=== PATIENT | male | born 1970 | race Caucasian/White ===

== ENCOUNTER 2016-09-19 23:49 | Emergency (ER) | payer OTHER ==
--- NOTE | 2016-09-20 01:58 | EDDOCDS ---
Nurse's Notes [facility] Name: Lino Stearns Age: 46 yrs Sex: Male : 1970 Arrival Date: 09/19/2016 Time: 23:49 Bed TR1 Private MD: NO PRIMARY PHYSICIAN, . Diagnosis: Epistaxis Presentation: 09/19 23:53 Presenting complaint: Patient states: Went to Urgent Care a couple of days mcp ago--prescribed antibiotic, inhaler and cough medicine for URI. About 9pm had 10-15 minute nose bleed--stopped now. Adult Sepsis Screening: The patient does not have new or worsening altered mentation. Patient's respiratory rate is less than 22. Systolic blood pressure is greater than 100. Patient has a qSOFA score of 0- Negative Sepsis Screen. Suicide/Homicide risk assessment- the patient denies having any suicidal and/or homicidal ideations and does not present with any other emotional, behavioral or mental health complaints. Status: Patient is not a manager service desk or dependent. Transition of care: patient was not received from another setting of care. 23:53 Acuity: KATIE Level 4 [facility] 23:53 Method Of Arrival: Walkin/Carried/Asstd [facility] Triage Assessment: 23:56 General: Appears in no apparent distress, Behavior is cooperative. Pain: Denies pain. [facility] HIV screening NA for this visit Offered previously. Neurological: No deficits noted. EENT: Reports nasal congestion nasal discharge. Respiratory: Airway is patent Respiratory effort is even, unlabored. Derm: Skin is pink, warm & dry. Historical: - Allergies: Aspirin (Upset stomach); SULFA (SULFONAMIDES); - Home Meds: 1. levofloxacin 750 mg Oral tab 1 tab once daily 2. benzonatate 100 mg oral cap 1 cap 3 times per day 3. Ventolin Rotahaler/Rotacaps Inhl four times a day - PMHx: none; - PSHx: Hernia repair; - Social history: Smoking status: Patient states was never smoker of tobacco. No barriers to communication noted, The patient speaks fluent Lao. - Family history: Not pertinent. - : The pt / caregiver states he / she is not on anticoagulants. Home medication list is obtained from the patient. - Exposure Risk Screening:: None identified. Screenin/08 01:56 Screening information is obtained from the patient. Fall risk: No risks identified. cp1 Assistance ADL's: requires no assistance with activities of daily living. Assistance ADL's: requires no assistance with activities of daily living. Assistance ADL's: requires no assistance with activities of daily living. Abuse/DV Screen: The patient / caregiver reports he/she is: not in a situation that causes fear, pain or injury. Nutritional screening: No deficits noted. Advance Directives: Unable to assess Advance Directive status due to pt condition. home support is adequate. Assessment: 01:43 General: Patient states that his BP was fine yesterday at urgent care and can't cp1 understand why we keep rechecking him here. Patient was informed his BP has been elevated since arrival and that's why we have rechecked it. Patient states " This is ridiculous and his blood pressure is fine and doesn't need any medications for it and won't start them either because I'm just anxious when in the hospital". PA was made aware.. 01:51 General: Patient was given his discharge paperwork and when offered a list of primary cp1 care doctors he declined stating "I don't need one because I just go to urgent care and plus I don't have high blood pressure. I have a 5 hour energy drink in me and that's why it's elevated".. Vital Signs: 09/19 23:51 BP 174 / 103; Pulse 108; Resp 18 S; Temp 97.7(O); Pulse Ox 96% on R/A; Weight 167.83 kg gr2 (R); Height 5 ft. 11 in. (180.34 cm) (R); Pain 0/10; 09/20 01:37 BP 172 / 99; Pulse 100; Resp 20; Temp 97.9; Pulse Ox 94% on R/A; cp1 09/19 23:51 Body Mass Index 51.60 (167.83 kg, 180.34 cm) gr2 Vitals: 09/19 23:51 Log In Time: September 19, 2016 at 23:51. gr2 ED Course: 23:50 Patient visited by Sunny Pederson. gr2 23:50 NO PRIMARY PHYSICIAN, . is Private Physician. gr2 23:50 Patient moved to Waiting gr2 23:51 Patient visited by Sunny Pederson. gr2 23:52 Patient moved to Pre RCE gr2 23:54 Triage Initiated [facility] 23:56 Patient visited by Cierra Pacheco RN. [facility] 23:59 Patient moved to MTA Wait cz 09/20 01:16 Patient moved to I4 / M4 cz 01:27 Tejas Jones [facility]-C [facility] cc10 01:27 Topher Gonzalez DO is Attending Physician. cc10 01:28 Patient visited by Tejas Jones PA-C. cc10 01:28 Patient visited by Tejas Jones PA-C. cc10 01:51 Patient moved to TR1 cln 01:56 The patient / caregiver is instructed regarding the plan of care and ED course. cp1 01:56 No IV's were initiated during this patient's visit. No procedures done that require cp1 assistance. Administered Medications: 01:51 Not Given (Patient Refused): Mupirocin Cream 2 % 1 applic Topical once; nasal with a cp1 q-tip Order Results: There are currently no results for this order. Outcome: 01:43 Discharge ordered by Provider. cc10 01:56 Discharge Assessment: Patient awake, alert and oriented x 3. No cognitive and/or cp1 functional deficits noted. Patient verbalized understanding of disposition instructions. patient administered narcotics - no. The following High Risk Discharge criteria are identified: None. Discharged to home ambulatory. Condition: good Condition: stable. Discharge instructions given to patient, Instructed on discharge instructions, follow up and referral plans. medication usage, Demonstrated understanding of instructions, medications, Pt was receptive of discharge instructions/ teaching. Prescriptions given X 1. No special radiology studies were completed. Property sent home with patient. :Personal belongings accompany Pt. 01:57 Patient left the ED. cp1 Signatures: Cierra Pacheco RN RN mcp Zecher, Calvin, RN RN cz Perkins, Cheryl,POLICYHOLDER INFORMATION CLERK POLICYHOLDER INFORMATION CLERK cp1 Sunny Pederson gr2 Tejas Jones PA-C PA-C cc10 Lesley Kate PCA FIELD CASHIER cln MTDD
--- NOTE | 2016-09-20 01:58 | EDDOCDS ---
Physician Documentation [facility] Name: Lino Stearns Age: 46 yrs Sex: Male : 1970 Arrival Date: 09/19/2016 Time: 23:49 Bed TR1 Private MD: NO PRIMARY PHYSICIAN, . Disposition: 09/20/16 01:43 Discharged to Home/Self Care. Impression: Epistaxis. - Condition is Stable. - Discharge Instructions: Nosebleed. - Prescriptions for Bactroban 2 % Topical Ointment - apply 1 application by INTRANASAL route every 12 hours for 5 days; 15 gram. - Medication Reconciliation, Local Pharmacy Hours form. - Follow up: Emergency Department; When: As needed. Follow up: Private Physician; When: Call to arrange an appointment; Reason: Wound/Symptom Recheck, Recheck today's complaints, Worsening of conditions, Continuance of care. - Problem is new. - Symptoms are resolved. Historical: - Allergies: Aspirin (Upset stomach); SULFA (SULFONAMIDES); - Home Meds: 1. levofloxacin 750 mg Oral tab 1 tab once daily 2. benzonatate 100 mg oral cap 1 cap 3 times per day 3. Ventolin Rotahaler/Rotacaps Inhl four times a day - PMHx: none; - PSHx: Hernia repair; - Social history: Smoking status: Patient states was never smoker of tobacco. No barriers to communication noted, The patient speaks fluent [place] Island[place]. - Family history: Not pertinent. - : The pt / caregiver states he / she is not on anticoagulants. Home medication list is obtained from the patient. - Exposure Risk Screening:: None identified. Vital Signs: 09/19 23:51 BP 174 / 103; Pulse 108; Resp 18 S; Temp 97.7(O); Pulse Ox 96% on R/A; Weight 167.83 kg gr2 / 370 lbs (R); Height 5 ft. 11 in. (180.34 cm) (R); Pain 0/10; 09/20 01:37 BP 172 / 99; Pulse 100; Resp 20; Temp 97.9; Pulse Ox 94% on R/A; cp1 09/19 23:51 Body Mass Index 51.60 (167.83 kg, 180.34 cm) gr2 MDM: 01:37 Mupirocin Cream 2 % 1 applic Topical once; nasal with a q-tip ordered. cc10 01:37 Vital Signs ordered. cc10 Administered Medications: 01:51 Not Given (Patient Refused): Mupirocin Cream 2 % 1 applic Topical once; nasal with a cp1 q-tip Signatures: Cierra Pacheco RN RN Liz Sullivan,LINE BUILDER LINE BUILDER cp1 Tejas Jones, REJIC PAMarcianoC cc10 MTDD
--- NOTE | 2016-09-22 12:19 | EDDOCDS ---
Physician Documentation [facility] Name: Lino Stearns Age: 46 yrs Sex: Male : 1970 Arrival Date: 09/19/2016 Time: 23:49 Bed TR1 Private MD: NO PRIMARY PHYSICIAN, . Disposition: 09/20/16 01:43 Discharged to Home/Self Care. Impression: Epistaxis. - Condition is Stable. - Discharge Instructions: Nosebleed. - Prescriptions for Bactroban 2 % Topical Ointment - apply 1 application by INTRANASAL route every 12 hours for 5 days; 15 gram. - Medication Reconciliation, Local Pharmacy Hours form. - Follow up: Emergency Department; When: As needed. Follow up: Private Physician; When: Call to arrange an appointment; Reason: Wound/Symptom Recheck, Recheck today's complaints, Worsening of conditions, Continuance of care. - Problem is new. - Symptoms are resolved. Historical: - Allergies: Aspirin (Upset stomach); SULFA (SULFONAMIDES); - Home Meds: 1. levofloxacin 750 mg Oral tab 1 tab once daily 2. benzonatate 100 mg oral cap 1 cap 3 times per day 3. Ventolin Rotahaler/Rotacaps Inhl four times a day - PMHx: none; - PSHx: Hernia repair; - Social history: Smoking status: Patient states was never smoker of tobacco. No barriers to communication noted, The patient speaks fluent Zimbabwean. - Family history: Not pertinent. - : The pt / caregiver states he / she is not on anticoagulants. Home medication list is obtained from the patient. - Exposure Risk Screening:: None identified. Vital Signs: 09/19 23:51 BP 174 / 103; Pulse 108; Resp 18 S; Temp 97.7(O); Pulse Ox 96% on R/A; Weight 167.83 kg gr2 / 370 lbs (R); Height 5 ft. 11 in. (180.34 cm) (R); Pain 0/10; 09/20 01:37 BP 172 / 99; Pulse 100; Resp 20; Temp 97.9; Pulse Ox 94% on R/A; cp1 09/19 23:51 Body Mass Index 51.60 (167.83 kg, 180.34 cm) gr2 MDM: 01:37 Mupirocin Cream 2 % 1 applic Topical once; nasal with a q-tip ordered. cc10 01:37 Vital Signs ordered. cc10 02:00 Financial registration complete. hs2 02:01 [facility] Payment Agreement was scanned into [employer] and attached to record. hs2 08:08 T-Sheet-- Draft Copy was scanned into [employer] and attached to record. seh Administered Medications: 01:51 Not Given (Patient Refused): Mupirocin Cream 2 % 1 applic Topical once; nasal with a cp1 q-tip Signatures: Cierra Pacheco RN RN Liz Sullivan,DOUBLE CUT SAWYER DOUBLE CUT SAWYER cp1 Tejas Jones, PA-C PA-C cc10 Cyndi Gibson, Reg Reg hs2 Lola Crump [facility] The chart was reviewed and I authenticate all verbal orders and agree with the evaluation and treatment provided.Attachments: 02:01 [facility] Payment Agreement hs2 08:08 T-Sheet-- Draft Copy [facility] Chart Complete MTDD
--- NOTE | 2016-09-22 12:20 | EDDOCDS ---
Physician Documentation [facility] Name: Lino Stearns Age: 46 yrs Sex: Male : 1970 Arrival Date: 09/19/2016 Time: 23:49 Bed TR1 Private MD: NO PRIMARY PHYSICIAN, . Disposition: 09/20/16 01:43 Discharged to Home/Self Care. Impression: Epistaxis. - Condition is Stable. - Discharge Instructions: Nosebleed. - Prescriptions for Bactroban 2 % Topical Ointment - apply 1 application by INTRANASAL route every 12 hours for 5 days; 15 gram. - Medication Reconciliation, Local Pharmacy Hours form. - Follow up: Emergency Department; When: As needed. Follow up: Private Physician; When: Call to arrange an appointment; Reason: Wound/Symptom Recheck, Recheck today's complaints, Worsening of conditions, Continuance of care. - Problem is new. - Symptoms are resolved. Historical: - Allergies: Aspirin (Upset stomach); SULFA (SULFONAMIDES); - Home Meds: 1. levofloxacin 750 mg Oral tab 1 tab once daily 2. benzonatate 100 mg oral cap 1 cap 3 times per day 3. Ventolin Rotahaler/Rotacaps Inhl four times a day - PMHx: none; - PSHx: Hernia repair; - Social history: Smoking status: Patient states was never smoker of tobacco. No barriers to communication noted, The patient speaks fluent [place]. - Family history: Not pertinent. - : The pt / caregiver states he / she is not on anticoagulants. Home medication list is obtained from the patient. - Exposure Risk Screening:: None identified. Vital Signs: 09/19 23:51 BP 174 / 103; Pulse 108; Resp 18 S; Temp 97.7(O); Pulse Ox 96% on R/A; Weight 167.83 kg gr2 / 370 lbs (R); Height 5 ft. 11 in. (180.34 cm) (R); Pain 0/10; 09/20 01:37 BP 172 / 99; Pulse 100; Resp 20; Temp 97.9; Pulse Ox 94% on R/A; cp1 09/19 23:51 Body Mass Index 51.60 (167.83 kg, 180.34 cm) gr2 MDM: 01:37 Mupirocin Cream 2 % 1 applic Topical once; nasal with a q-tip ordered. cc10 01:37 Vital Signs ordered. cc10 02:00 Financial registration complete. hs2 02:01 [facility] Payment Agreement was scanned into [employer] and attached to record. hs2 08:08 T-Sheet-- Draft Copy was scanned into [employer] and attached to record. seh Administered Medications: 01:51 Not Given (Patient Refused): Mupirocin Cream 2 % 1 applic Topical once; nasal with a cp1 q-tip Signatures: Cierra Pacheco RN RN Liz Sullivan,MACHINE FILLER SERVICER MACHINE FILLER SERVICER cp1 Tejas Jones, PA-C PA-C cc10 Cyndi Gibson, Reg Reg hs2 Lola Crmup [facility] The chart was reviewed and I authenticate all verbal orders and agree with the evaluation and treatment provided.Attachments: 02:01 [facility] Payment Agreement hs2 08:08 T-Sheet-- Draft Copy [facility] Chart Complete MTDD
--- NOTE | 2016-09-22 12:20 | EDDOCDS ---
Nurse's Notes [facility] Name: Lino Stearns Age: 46 yrs Sex: Male : 1970 Arrival Date: 09/19/2016 Time: 23:49 Bed TR1 Private MD: NO PRIMARY PHYSICIAN, . Diagnosis: Epistaxis Presentation: 09/19 23:53 Presenting complaint: Patient states: Went to Urgent Care a couple of days mcp ago--prescribed antibiotic, inhaler and cough medicine for URI. About 9pm had 10-15 minute nose bleed--stopped now. Adult Sepsis Screening: The patient does not have new or worsening altered mentation. Patient's respiratory rate is less than 22. Systolic blood pressure is greater than 100. Patient has a qSOFA score of 0- Negative Sepsis Screen. Suicide/Homicide risk assessment- the patient denies having any suicidal and/or homicidal ideations and does not present with any other emotional, behavioral or mental health complaints. Status: Patient is not a commercial hvac service technician or dependent. Transition of care: patient was not received from another setting of care. 23:53 Acuity: KATIE Level 4 [facility] 23:53 Method Of Arrival: Walkin/Carried/Asstd [facility] Triage Assessment: 23:56 General: Appears in no apparent distress, Behavior is cooperative. Pain: Denies pain. [facility] HIV screening NA for this visit Offered previously. Neurological: No deficits noted. EENT: Reports nasal congestion nasal discharge. Respiratory: Airway is patent Respiratory effort is even, unlabored. Derm: Skin is pink, warm & dry. Historical: - Allergies: Aspirin (Upset stomach); SULFA (SULFONAMIDES); - Home Meds: 1. levofloxacin 750 mg Oral tab 1 tab once daily 2. benzonatate 100 mg oral cap 1 cap 3 times per day 3. Ventolin Rotahaler/Rotacaps Inhl four times a day - PMHx: none; - PSHx: Hernia repair; - Social history: Smoking status: Patient states was never smoker of tobacco. No barriers to communication noted, The patient speaks fluent Nepali. - Family history: Not pertinent. - : The pt / caregiver states he / she is not on anticoagulants. Home medication list is obtained from the patient. - Exposure Risk Screening:: None identified. Screenin/08 01:56 Screening information is obtained from the patient. Fall risk: No risks identified. cp1 Assistance ADL's: requires no assistance with activities of daily living. Assistance ADL's: requires no assistance with activities of daily living. Assistance ADL's: requires no assistance with activities of daily living. Abuse/DV Screen: The patient / caregiver reports he/she is: not in a situation that causes fear, pain or injury. Nutritional screening: No deficits noted. Advance Directives: Unable to assess Advance Directive status due to pt condition. home support is adequate. Assessment: 01:43 General: Patient states that his BP was fine yesterday at urgent care and can't cp1 understand why we keep rechecking him here. Patient was informed his BP has been elevated since arrival and that's why we have rechecked it. Patient states " This is ridiculous and his blood pressure is fine and doesn't need any medications for it and won't start them either because I'm just anxious when in the hospital". PA was made aware.. 01:51 General: Patient was given his discharge paperwork and when offered a list of primary cp1 care doctors he declined stating "I don't need one because I just go to urgent care and plus I don't have high blood pressure. I have a 5 hour energy drink in me and that's why it's elevated".. Vital Signs: 09/19 23:51 BP 174 / 103; Pulse 108; Resp 18 S; Temp 97.7(O); Pulse Ox 96% on R/A; Weight 167.83 kg gr2 (R); Height 5 ft. 11 in. (180.34 cm) (R); Pain 0/10; 09/20 01:37 BP 172 / 99; Pulse 100; Resp 20; Temp 97.9; Pulse Ox 94% on R/A; cp1 09/19 23:51 Body Mass Index 51.60 (167.83 kg, 180.34 cm) gr2 Vitals: 09/19 23:51 Log In Time: September 19, 2016 at 23:51. gr2 ED Course: 23:50 Patient visited by Sunny Pederson. gr2 23:50 NO PRIMARY PHYSICIAN, . is Private Physician. gr2 23:50 Patient moved to Waiting gr2 23:51 Patient visited by Sunny Pederson. gr2 23:52 Patient moved to Pre RCE gr2 23:54 Triage Initiated [facility] 23:56 Patient visited by Cierra Pacheco RN. [facility] 23:59 Patient moved to MTA Wait cz 09/20 01:16 Patient moved to I4 / M4 cz 01:27 Tejas [facility]nes [facility]-C [facility] cc10 01:27 Topher Gonzalez DO is Attending Physician. cc10 01:28 Patient visited by Tejas Jones PA-C. cc10 01:28 Patient visited by Tejas Jones PA-C. cc10 01:51 Patient moved to TR1 cln 01:56 The patient / caregiver is instructed regarding the plan of care and ED course. cp1 01:56 No IV's were initiated during this patient's visit. No procedures done that require cp1 assistance. 02:01 [facility] Payment Agreement was scanned into [employer] and attached to record. hs2 08:08 T-Sheet-- Draft Copy was scanned into [employer] and attached to record. seh Administered Medications: 01:51 Not Given (Patient Refused): Mupirocin Cream 2 % 1 applic Topical once; nasal with a cp1 q-tip Order Results: There are currently no results for this order. Outcome: 01:43 Discharge ordered by Provider. cc10 01:56 Discharge Assessment: Patient awake, alert and oriented x 3. No cognitive and/or cp1 functional deficits noted. Patient verbalized understanding of disposition instructions. patient administered narcotics - no. The following High Risk Discharge criteria are identified: None. Discharged to home ambulatory. Condition: good Condition: stable. Discharge instructions given to patient, Instructed on discharge instructions, follow up and referral plans. medication usage, Demonstrated understanding of instructions, medications, Pt was receptive of discharge instructions/ teaching. Prescriptions given X 1. No special radiology studies were completed. Property sent home with patient. :Personal belongings accompany Pt. 01:57 Patient left the ED. cp1 Signatures: Cierra Pacheco RN RN mcp Zecher, Calvin, RN RN cz Perkins, Cheryl,QUALITY CONTROL HEAD QUALITY CONTROL HEAD cp1 Sunny Pederson gr2 Tejas Jones PA-C PA-C cc10 Gibson, Cyndi, Reg Reg hs2 Lesley Kate, REAL ESTATE ACQUISITION ANALYST REAL ESTATE ACQUISITION ANALYST Lola Elias Chart Complete MTDD
== END 2016-09-20 01:57 | disposition home or self-care (01) ==
LOC: M ED 23:49
DX: R04.0 Epistaxis (principal); E66.9 Obesity, unspecified; Z68.43 Body mass index [BMI] 50.0-59.9, adult; Z79.2 Long term (current) use of antibiotics; Z79.899 Other long term (current) drug therapy; Z88.2 Allergy status to sulfonamides; Z88.6 Allergy status to analgesic agent

== ENCOUNTER → 2016-12-24 | Outpatient (REF) | payer OTHER ==
[2016-12-24 19:04] LABS: BASO # 0.1 K/mm3 (0.0-0.2); BASO % 0.6 % (0.0-1.0); EOS # 0.3 K/mm3 (0.0-0.50); LARGE UNSTAINED CELL # 0.1 K/mm3 (0.0-0.4); LARGE UNSTAINED CELL % 1.4 % (0.0-4.0); LYMPH # 2.4 K/mm3 (1.5-4.5); MEAN CORPUSCULAR HEMOGLOBIN 30.2 pg (27.0-33.0); MEAN CORPUSCULAR HGB CONC 33.6 g/dl (32.0-36.5); MEAN CORPUSCULAR VOLUME 89.9 fl (80.0-96.0); MONO # 0.6 K/mm3 (0.0-0.8); MONO % 5.8 % (0.0-5.0); NEUTROPHILS # 6.4 K/mm3 (1.8-7.7); NEUTROPHILS % 66.1 % (36.0-66.0); PLATELET COUNT, AUTOMATED 392 k/mm3 (150-450); RED CELL DISTRIBUTION WIDTH 13.7 % (11.5-14.5); WHITE BLOOD COUNT 9.6 K/mm3 (4.0-10.0)
[2016-12-24 19:20] LABS: ALBUMIN 4.1 GM/DL (3.2-5.2); ALBUMIN/GLOBULIN RATIO 1.17 (1.00-1.93); ALKALINE PHOSPHATASE 110 U/L (45-117); ALT/SGPT 54 U/L (12-78); ANION GAP 7 MEQ/L (8-16); AST/SGOT 33 U/L (15-37); BILIRUBIN,TOTAL 0.5 MG/DL (0.2-1.0); BLOOD UREA NITROGEN 18 MG/DL (7-18); CALCIUM LEVEL 9.3 MG/DL (8.5-10.1); CARBON DIOXIDE LEVEL 31 MEQ/L (21-32); CHLORIDE LEVEL 102 MEQ/L (98-107); CHOLESTEROL LEVEL 207 MG/DL (<200); CREATININE FOR GFR 0.87 MG/DL (0.70-1.30); GLOMERULAR FILTRATION RATE > 60.0 (>60); GLUCOSE, FASTING 105 MG/DL (70-105); POTASSIUM SERUM 4.5 MEQ/L (3.5-5.1); SODIUM LEVEL 140 MEQ/L (136-145); T UPTAKE 33 % (33-40); TOTAL PROTEIN 7.6 GM/DL (6.4-8.2); TRIGLYCERIDES LEVEL 438 MG/DL (<150)
[2016-12-25 09:37] LABS: THYROID PEROXIDASE ANTIBODY < 28.0 U/ML (<60.0)
== END ==
LOC: M LAB REF 17:05
PROVIDERS: ATTEND Surgery
DX: I10 Essential (primary) hypertension (principal); E66.01 Morbid (severe) obesity due to excess calories

== ENCOUNTER → 2017-03-08 | Outpatient (CLI) | payer OTHER ==
--- NOTE | 2017-03-08 17:24 | REP ---
Left knee series: Five views. History: Acute pain in the left knee. Findings: Five views of the left knee demonstrate patellofemoral narrowing and spur formation. There is medial and lateral compartment osteoarthritic spurring as well. A fabella is noted posterolaterally. No loose body is appreciated. Impression: Three compartment osteoarthritis. No acute bony abnormality. Signed by Hai Bledsoe MD 03/09/2017 09:19 A
== END ==
LOC: M ADAMS 16:31
PROVIDERS: ATTEND Family Medicine
DX: M17.12 Unilateral primary osteoarthritis, left knee (principal)

== ENCOUNTER → 2019-01-07 | Outpatient (CLI) | payer SELFPAY ==
--- NOTE | 2019-01-07 10:56 | REP ---
RIGHT WRIST, FOUR VIEWS: HISTORY: Pain. There is no acute fracture or dislocation. The joint spaces are normal in appearance. IMPRESSION: There is no acute fracture or dislocation. Electronically Signed by Igor Hansen MD 01/07/2019 10:59 A
== END ==
LOC: M ADAMS 09:51
PROVIDERS: ATTEND Physician Assistant
DX: M25.531 Pain in right wrist (principal)

== ENCOUNTER → 2019-08-15 | Outpatient (REF) | payer OTHER ==
[2019-08-15 17:42] LABS: BASO # 0.1 10^3/uL (0.0-0.2); BASO % 0.6 % (0.0-1.0); EOS # 0.2 10^3/uL (0.0-0.5); EOS % 2.5 % (0.0-3.0); HEMOGLOBIN 15.1 g/dl (13.5-17.5); LYMPH # 2.6 10^3/uL (1.5-5.0); LYMPH % 32.1 % (24.0-44.0); MEAN CORPUSCULAR HEMOGLOBIN 30.8 pg (27.0-33.0); MEAN CORPUSCULAR HGB CONC 32.8 g/dl (32.0-36.5); MEAN CORPUSCULAR VOLUME 93.9 fl (80.0-96.0); MONO # 0.7 10^3/uL (0.0-0.8); MONO % 8.1 % (0.0-5.0); NEUTROPHILS # 4.5 10^3/uL (1.5-8.5); NEUTROPHILS % 56.2 % (36.0-66.0); PLATELET COUNT, AUTOMATED 271 10^3/uL (150-450)
[2019-08-15 17:54] LABS: ALBUMIN 4.1 GM/DL (3.2-5.2); ALT/SGPT 71 U/L (12-78); BILIRUBIN,TOTAL 0.6 MG/DL (0.2-1.0); BLOOD UREA NITROGEN 15 MG/DL (7-18); CARBON DIOXIDE LEVEL 29 MEQ/L (21-32); CHLORIDE LEVEL 105 MEQ/L (98-107); CHOLESTEROL LEVEL 205 MG/DL (<200); CHOLESTEROL RISK RATIO 4.361 (<5); FREE T4 0.93 NG/DL (0.76-1.46); GLOMERULAR FILTRATION RATE > 60.0 (>56); GLUCOSE, FASTING 92 MG/DL (70-100); HDL CHOLESTEROL 47 MG/DL (>40); LDL CHOLESTEROL 122 MG/DL (<100); NON-HDL-C 158 MG/DL; POTASSIUM SERUM 4.4 MEQ/L (3.5-5.1); SODIUM LEVEL 142 MEQ/L (136-145); TOTAL PROTEIN 7.4 GM/DL (6.4-8.2); TRIGLYCERIDES LEVEL 181 MG/DL (<150)
[2019-08-15 18:17] LABS: HEMOGLOBIN A1c 5.8 %
== END ==
LOC: M SFHCADAM 13:13
PROVIDERS: ATTEND Physician Assistant Medical
DX: E78.1 Pure hyperglyceridemia (principal); E66.01 Morbid (severe) obesity due to excess calories; R73.03 Prediabetes

== ENCOUNTER → 2019-08-16 | Outpatient (REF) | payer OTHER ==
[2019-08-16 19:36] LABS: CREATININE, URINE 46.9 MG/DL; MALB URINE SIEMENS 5.5 MG/L; MAU/CREAT RATIO 11.7 MCG/MG (0.0-30.0)
== END ==
LOC: M SFHCADAM 16:42
PROVIDERS: ATTEND Physician Assistant Medical
DX: E78.1 Pure hyperglyceridemia (principal); E66.01 Morbid (severe) obesity due to excess calories; R73.03 Prediabetes

== ENCOUNTER → 2019-09-27 | Outpatient (CLI) | payer OTHER ==
--- NOTE | 2019-09-28 01:20 | REP ---
Clinical: Right wrist trauma. Technique: AP, lateral, bilateral oblique views of the right wrist. Findings: Generalized age-related changes include increased sclerosis to the radial surface with mildly decreased radiocarpal joint space. No acute fracture dislocation. Impression: Generalized age-related changes. No acute fracture dislocation. Electronically Signed by Tyrone Hernandez MD 09/28/2019 01:12 A
--- NOTE | 2019-09-28 01:21 | REP ---
Clinical: Trauma. Technique: AP, lateral, bilateral oblique views of the right hand. Findings: Generalized age-related changes noted. No acute fracture dislocation. No overt arthritic changes. No subcutaneous emphysema or foreign body. Impression: No acute fracture or dislocation. Electronically Signed by Tyrone Hernandez MD 09/28/2019 01:13 A
== END ==
LOC: M ADAMS 15:15
PROVIDERS: ATTEND Physician Assistant
DX: S69.91XA Unspecified injury of right wrist, hand and finger(s), initial encounter (principal); W18.30XA Fall on same level, unspecified, initial encounter; Y92.009 Unspecified place in unspecified non-institutional (private) residence as the place of occurrence of the external cause

== ENCOUNTER → 2022-07-01 | Outpatient (CLI) | payer OTHER ==
[2022-07-01 15:04] LABS: HEMATOCRIT 44.4 % (42.0-52.0); HEMOGLOBIN 14.7 g/dl (13.5-17.5); MEAN CORPUSCULAR HEMOGLOBIN 30.3 pg (27.0-33.0); MEAN CORPUSCULAR HGB CONC 33.1 g/dl (32.0-36.5); MEAN CORPUSCULAR VOLUME 91.5 fl (80.0-96.0); RED BLOOD COUNT 4.85 10^6/uL (4.30-6.10); WHITE BLOOD COUNT 8.7 10^3/uL (4.0-10.0)
[2022-07-01 15:05] LABS: BASO # 0.1 10^3/uL (0.0-0.2); BASO % 0.8 % (0.0-1.0); EOS # 0.2 10^3/uL (0.0-0.5); EOS % 1.9 % (0.0-3.0); LYMPH # 2.5 10^3/uL (1.5-5.0); MONO # 0.8 10^3/uL (0.0-0.8); MONO % 8.7 % (2.0-8.0); NEUTROPHILS # 5.2 10^3/uL (1.5-8.5); NEUTROPHILS % 59.3 % (36.0-66.0); PLATELET COUNT, AUTOMATED 356 10^3/uL (150-450)
[2022-07-01 15:21] LABS: HEMOGLOBIN A1c 6.1 %
[2022-07-01 16:22] LABS: ALBUMIN 4.1 GM/DL (3.2-5.2); ALT/SGPT 44 U/L (12-78); BILIRUBIN,TOTAL 0.6 MG/DL (0.2-1.0); BLOOD UREA NITROGEN 10 MG/DL (7-18); CALCIUM LEVEL 9.6 MG/DL (8.5-10.1); CARBON DIOXIDE LEVEL 31 MEQ/L (21-32); CHLORIDE LEVEL 100 MEQ/L (98-107); CHOLESTEROL LEVEL 237 MG/DL (<200); CHOLESTEROL RISK RATIO 5.386 (<5); CREATININE FOR GFR 0.91 MG/DL (0.70-1.30); GLOMERULAR FILTRATION RATE > 60.0 (>56); GLUCOSE, FASTING 98 MG/DL (70-100); HDL CHOLESTEROL 44 MG/DL (>40); LDL CHOLESTEROL 134 MG/DL (<100); NON-HDL-C 193 MG/DL; POTASSIUM SERUM 4.5 MEQ/L (3.5-5.1); SODIUM LEVEL 136 MEQ/L (136-145); TOTAL PROTEIN 8.3 GM/DL (6.4-8.2); TRIGLYCERIDES LEVEL 293 MG/DL (<150)
== END ==
LOC: M LAB 13:50
PROVIDERS: ATTEND Registered Nurse
DX: L03.116 Cellulitis of left lower limb (principal); E66.01 Morbid (severe) obesity due to excess calories

== ENCOUNTER → 2023-02-02 | Outpatient (REF) | payer OTHER ==
[2023-02-02 17:31] LABS: ALBUMIN 4.3 G/DL (3.2-5.2); ALKALINE PHOSPHATASE 84 U/L (46-116); ALT/SGPT 46 U/L (7.0-40); AST/SGOT 33 U/L (<34); BILIRUBIN,TOTAL 0.9 MG/DL (0.3-1.2); BLOOD UREA NITROGEN 16 MG/DL (9-23); CALCIUM LEVEL 9.4 MG/DL (8.5-10.1); CARBON DIOXIDE LEVEL 30 MMOL/L (20-31); CHLORIDE LEVEL 104 MMOL/L (98-107); CHOLESTEROL LEVEL 214 MG/DL (<200); CHOLESTEROL RISK RATIO 4.61 (<5); CREATININE FOR GFR 0.84 MG/DL (0.70-1.30); GLOMERULAR FILTRATION RATE > 60.0 (>56); GLUCOSE, FASTING 96 MG/DL (60-100); HDL CHOLESTEROL 46.4 MG/DL (>40); LDL CHOLESTEROL 125.6 MG/DL (<100); NON-HDL-C 167.6 MG/DL; POTASSIUM SERUM 3.7 MMOL/L (3.5-5.1); SODIUM LEVEL 138 MMOL/L (136-145); TOTAL PROTEIN 7.5 G/DL (5.7-8.2); TRIGLYCERIDES LEVEL 210 MG/DL (<150)
== END ==
LOC: M LABDRWAD 15:55
PROVIDERS: ATTEND Registered Nurse
DX: E78.2 Mixed hyperlipidemia (principal)

== ENCOUNTER → 2023-09-08 | Outpatient (CLI) | payer OTHER | LOC: M ADAMS 11:20 | PROVIDERS: ATTEND Registered Nurse | DX: M25.571 Pain in right ankle and joints of right foot (principal); M77.31 Calcaneal spur, right foot ==

== ENCOUNTER → 2024-04-18 | Outpatient (REF) | payer OTHER ==
[2024-04-18 19:35] LABS: HEMOGLOBIN A1c 5.4 % (4.0-6.0)
[2024-04-18 20:13] LABS: ALBUMIN 4.2 G/DL (3.2-5.2); ALKALINE PHOSPHATASE 92 U/L (46-116); ALT/SGPT 23 U/L (7.0-40); AST/SGOT 16 U/L (<34); BILIRUBIN,TOTAL 0.8 MG/DL (0.3-1.2); BLOOD UREA NITROGEN 18 MG/DL (9-23); CALCIUM LEVEL 9.5 MG/DL (8.5-10.1); CARBON DIOXIDE LEVEL 28 MMOL/L (20-31); CHLORIDE LEVEL 105 MMOL/L (98-107); CHOLESTEROL LEVEL 239 MG/DL (<200); CHOLESTEROL RISK RATIO 5.84 (<5); CREATININE FOR GFR 1.06 MG/DL (0.70-1.30); GLOMERULAR FILTRATION RATE > 60.0 (>56); GLUCOSE, FASTING 80 MG/DL (60-100); HDL CHOLESTEROL 40.9 MG/DL (>40); LDL CHOLESTEROL 146.7 MG/DL (<100); NON-HDL-C 198.1 MG/DL; POTASSIUM SERUM 4.3 MMOL/L (3.5-5.1); SODIUM LEVEL 140 MMOL/L (136-145); TOTAL PROTEIN 7.4 G/DL (5.7-8.2); TRIGLYCERIDES LEVEL 257 MG/DL (<150)
== END ==
LOC: M LABDRWAD 17:43
PROVIDERS: ATTEND Registered Nurse
DX: E78.2 Mixed hyperlipidemia (principal); E66.01 Morbid (severe) obesity due to excess calories

== ENCOUNTER → 2025-07-24 | Outpatient (CLI) | payer OTHER ==
[2025-07-24 18:49] LABS: ALT/SGPT 28 U/L (7.0-40); AST/SGOT 25 U/L (<34); CALCIUM LEVEL 9.4 MG/DL (8.5-10.1); CARBON DIOXIDE LEVEL 30 MMOL/L (20-31); CHLORIDE LEVEL 101 MMOL/L (98-107); CHOLESTEROL LEVEL 242 MG/DL (<200); CHOLESTEROL RISK RATIO 4.26 (<5); CREATININE FOR GFR 0.85 MG/DL (0.70-1.30); GLOMERULAR FILTRATION RATE > 90.0 (>56); LDL CHOLESTEROL 157.0 MG/DL (<100); NON-HDL-C 185.2 MG/DL; POTASSIUM SERUM 4.1 MMOL/L (3.5-5.1); SODIUM LEVEL 141 MMOL/L (136-145); TRIGLYCERIDES LEVEL 141 MG/DL (<150)
[2025-07-24 19:07] LABS: BASO # 0.1 10^3/uL (0.0-0.2); BASO % 0.8 % (0.0-1.0); EOS # 0.3 10^3/uL (0.0-0.5); EOS % 3.2 % (0.0-3.0); LYMPH # 2.9 10^3/uL (1.5-5.0); LYMPH % 34.5 % (24.0-44.0); MONO # 0.6 10^3/uL (0.0-0.8); MONO % 7.2 % (2.0-8.0); NEUTROPHILS # 4.5 10^3/uL (1.5-8.5); NEUTROPHILS % 53.9 % (36.0-66.0); PLATELET COUNT, AUTOMATED 330 10^3/uL (150-450)
[2025-07-24 19:13] LABS: ESTIMATED AVERAGE GLUCOSE 108.0 MG/DL (60-110)
== END ==
LOC: M LABDRWAD 11:59
PROVIDERS: ATTEND Registered Nurse
DX: Z00.00 Encounter for general adult medical examination without abnormal findings (principal)